=== PATIENT | female | born 1975 | race Caucasian/White ===

== ENCOUNTER 2017-01-16 06:16 | Emergency (ER) | payer MEDICAID ==
[2017-01-16 06:17] VITALS: BMI 27.1
[2017-01-16 07:18] VITALS: TEMP 98
--- NOTE | 2017-01-16 07:22 | US ---
HISTORY: Pelvic pain. LMP 01/14/2017 COMPARISON: 08/16/2012 TECHNIQUE: Transvaginal FINDINGS: UTERUS: Measures 9.3 x 6.0 x 7.2 cm. Normal in size and appearance. No fibroid or other mass lesion seen. An IUD with appears normal position the endometrial cavity. The uterine fundal endometrium is more clearly depicted on this exam than the prior. ENDOMETRIUM: Measures 11 mm in diameter. Within normal limits for patient's age. CERVIX: No cervical abnormality identified. Prior nabothian cysts are not appreciated on this exam RIGHT OVARY: Measures 2.6 x 2.1 x 2.5 cm. No solid mass. Normal flow. LEFT OVARY: Nonvisualized FREE FLUID: No significant free fluid noted. OTHER FINDINGS: None. IMPRESSION: Nonvisualized left ovary. Normal-appearing right ovary. IUD in the endometrial cavity.
[2017-01-16 07:46] LABS: BASO # 0.02 K/mm3 (0.0-2.0); BASO % 0.3 % (0.0-3.0); EOS # 0.1 (0.0-0.7); EOS % 1.2 % (1.5-5.0); GRAN # 5.11 (1.4-6.5); GRAN % 70.4 % (50.0-68.0); HEMATOCRIT 39.2 % (36.0-48.0); LYMPH # 1.6 (1.2-3.4); LYMPH % 21.6 % (22.0-35.0); MEAN CELL VOLUME 76.7 fl (80.0-105.0); MEAN CORPUSCULAR HEMOGLOBIN 25.4 pg (25.0-35.0); MEAN CORPUSCULAR HGB CONC 33.2 g/dl (31.0-37.0); MEAN PLATELET VOLUME 9.7 fl (7.0-11.0); MONO # 0.5 (0.1-0.6); MONO % 6.5 % (1.0-6.0); WHITE BLOOD COUNT 7.3 10^3/ul (4.5-11.0)
--- NOTE | 2017-01-16 07:51 | ED PDOC ---
Physical Exam Temperature: Afebrile Blood Pressure: Normal Pulse: Regular Respiratory Rate: Normal Appearance: Positive for: Well-Appearing, Non-Toxic, Comfortable Pain Distress: None Mental Status: Positive for: Alert and Oriented X 3 - Systems Exam Head: Present: Atraumatic, Normocephalic Pupils: Present: PERRL Conjunctiva: Present: Normal Mouth: Present: Moist Mucous Membranes Neck: Present: Normal Range of Motion Respiratory/Chest: Present: Clear to Auscultation, Good Air Exchange. No: Respiratory Distress, Accessory Muscle Use Cardiovascular: Present: Regular Rate and Rhythm, Normal S1, S2. No: Murmurs Abdomen: Present: Tenderness (LLQ >RLQ), Normal Bowel Sounds. No: Peritoneal Signs Genitourinary/Pelvic Exam: Present: Normal External Genitalia, Vaginal Bleeding , Cervical os Closed. No: Vaginal Discharge, Adenexal Tenderness, Adenexal Mass , Cervical Motion Tendernes, Odor Lower Extremity: Present: Normal Inspection. No: Edema Neurological: Present: GCS=15, CN II-XII Intact Skin: Present: Warm, Dry, Normal Color Psychiatric: Present: Alert, Oriented x 3 <Sita Julien - Last Filed: 01/16/17 11:21> Medical Decision Making Re-evaluation Time: 08:56 Reassessment Condition: Improved - Lab Interpretations I have reviewed the lab results: Yes Interpretation: All labs normal - RAD Interpretation Detailer: Radiologist <Sita Julien - Last Filed: 01/16/17 11:21> - Lab Interpretations I have reviewed the lab results: Yes - RAD Interpretation Detailer: Radiologist <Giovanny Dee - Last Filed: 01/17/17 13:02> ED Course and Treatment: 01/16/17 08:50 Patient was signed out to me by resident Dr. Guy. Patient was given toradol and reports feeling better. L ovary was not seen on transvaginal U/S. U/ A showed. CT abd/pelvis ordered with contrast to rule out ovarian hemorrhagic cyst v. torsion. 01/16/17 10:29 CT Abdomen and Pelvis with contrast HISTORY: lower abd pain L>R COMPARISON: None. FINDINGS: LOWER THORAX: Unremarkable. LIVER: Hepatic steatosis appear No gross lesion or ductal dilatation. GALLBLADDER AND BILE DUCTS: Unremarkable. PANCREAS: Unremarkable. No gross lesion or ductal dilatation. SPLEEN: Tiny splenule -otherwise unremarkable ADRENALS: Unremarkable. No mass. KIDNEYS AND URETERS: Unremarkable. No hydronephrosis. No solid mass. VASCULATURE: Unremarkable. No aortic aneurysm. BOWEL: No obstruction. No gross mural thickening. Redundant rectosigmoid bowel loop is contiguous with a anterior and superior positioned the left ovary with small follicular cystic changes. There may be some minimal surrounding edema here - recent follicular cystic changes are favored. No diverticular low oasis is appreciated to suggest diverticulitis. APPENDIX: Nonvisualized PERITONEUM: Unremarkable. No free fluid. No free air. LYMPH NODES: Unremarkable. No enlarged lymph nodes. BLADDER: Unremarkable. REPRODUCTIVE: The hypodensities in each adnexa/ ovary are believe most consistent with follicular cystic changes Trace fluid around the posterior right ovary is suggested. Left ovary is more anterior and superior position with follicular cystic changes - it is contiguous with a rectosigmoid redundant bowel lobe. Some trace inflammatory changes perhaps relating to physiologic ovarian cystic changes are a consideration. No identifiable diverticulosis here to suggest diverticulitis noted. An IUD appears normal position in upper intrauterine cavity. BONES: No acute fracture. Bilateral sclerotic SI joint arthrosis OTHER FINDINGS: None. IMPRESSION: The left ovary is anterior and superior in position and contiguous with the redundant rectosigmoid colon loop. Regional trace edema here noted - physiologic ovarian follicular cystic change is a consideration. No regional diverticulosis here seen to suggest diverticulitis. No bowel obstruction. No free air Right ovarian fluid of follicular cystic changes with bordering probably physiological free fluid here from follicular cystic the recent rupture is favored Ro appendix not visualized Spoke with fagot heater helper, Dr. Simeon who recommends pain control and outpatient follow up. Patient can follow up with outpatient imaging account manager Dr. Tiara Dejesus. She will be given Naproxen prescription for pain control. (Sita Julien) 01/16/17 07:00 Patient signed out to me by Dr. Durand. Pending sonogram and reevaluation on disposition. 01/16/17 07:25 Transvaginal Ultrasound: Creator : Claudette Barboza V. COMPARISON:08/16/2012 FINDINGS: UTERUS: Measures 9.3 x 6.0 x 7.2 cm. Normal in size and appearance. No fibroid or other mass lesion seen. An IUD with appears normal position the endometrial cavity. The uterine fundal endometrium is more clearly depicted on this exam than the prior. ENDOMETRIUM: Measures 11 mm in diameter. Within normal limits for patient's age. CERVIX: No cervical abnormality identified. Prior nabothian cysts are not appreciated on this exam RIGHT OVARY: Measures 2.6 x 2.1 x 2.5 cm. No solid mass. Normal flow. LEFT OVARY: Nonvisualized FREE FLUID: No significant free fluid noted. OTHER FINDINGS: None. IMPRESSION: Nonvisualized left ovary. Normal-appearing right ovary. IUD in the endometrial cavity. 01/16/17 Patient Seen With Resident: In agreement with resident note which contains more details about the patient. Patient was seen and evaluated with resident. Came up with plan and treatment together. Patient had lower abdominal tenderness with mild guarding. Her pain was controlled in the ED and her abdominal exam improved. She was able to tolerate PO fluids in the ED. OBGYN was consulted and given instructions as documented above. Patient feels much better and will make sure to follow up with her OBGYN. If her symptoms worsen or any other concern she will return to the ED. ( Giovanny Dee) - Lab Interpretations Lab Results: 01/16/17 07:43 01/16/17 07:43 Lab Results 01/16/17 08:42: Urine Color Yellow, Urine Appearance Sl cloudy, Urine pH 7.5, Ur Specific [place] 1.015, Urine Protein Trace H, Urine Glucose (UA) Negative, Urine Ketones Negative, Urine Blood Large H, Urine Nitrate Negative, Urine Bilirubin Negative, Urine Urobilinogen 0.2, Ur Leukocyte Esterase Trace H, Urine RBC 25 - 30, Urine WBC 2 - 5, Ur Epithelial Cells 10 - 12 01/16/17 07:43: Sodium 140, Potassium 4.1, Chloride 104, Carbon Dioxide 27, Anion Gap 13, BUN 16, Creatinine 0.6, Est GFR ( Amer) > 60, Est GFR (Non- Af Amer) > 60, Random Glucose 92, Calcium 9.0, Total Bilirubin 0.9, AST 21, ALT 31, Alkaline Phosphatase 74, Total Protein 7.2, Albumin 4.0, Globulin 3.2, Albumin/Globulin Ratio 1.3 01/16/17 07:43: WBC 7.3, RBC 5.11, Hgb 13.0, Hct 39.2, MCV 76.7 L, MCH 25.4, MCHC 33.2, RDW 15.0 H, Plt Count 250, MPV 9.7, Gran % 70.4 H, Lymph % (Auto) 21.6 L, Ware % (Auto) 6.5 H, Eos % (Auto) 1.2 L, Baso % (Auto) 0.3, Gran # 5.11 , Lymph # 1.6, Ware # 0.5, Eos # 0.1, Baso # 0.02 - RAD Interpretation Radiology Orders: 01/16/17 06:41 TRANSVAGINAL [US] Stat 01/16/17 08:42 ABD & PELVIS IV CONTRAST ONLY [CT] Stat - Medication Orders Current Medication Orders: Discontinued Medications Sodium Chloride (Sodium Chloride 0.9%) 1,000 mls @ 999 mls/hr IV .Q1H1M STA Stop: 01/16/17 09:43 Last Admin: 01/16/17 08:50 Dose: 999 mls/hr Iohexol (Omnipaque 300 100 Ml) Confirm Administered Dose 100 ml IJ .STK-MED ONE Stop: 01/16/17 08:49 Ketorolac Tromethamine (Toradol) 30 mg IVP STAT STA Stop: 01/16/17 08:09 Last Admin: 01/16/17 08:13 Dose: 30 mg <Sita Julien - Last Filed: 01/16/17 11:21> - PA / COTTON TIPPER / Resident Statement MD/DO has reviewed & agrees with the documentation as recorded. MD/DO has examined the patient and agrees with the treatment plan. - Scribe Statement The provider has reviewed the documentation as recorded by the Scribe <Giovanny Dee - Last Filed: 01/17/17 13:02> - Scribe Statement Rose Hoyt Provider Scribe Attestation: All medical record entries made by the Scribe were at my direction and personally dictated by me. I have reviewed the chart and agree that the record accurately reflects my personal performance of the history, physical exam, medical decision making, and the department course for this patient. I have also personally directed, reviewed, and agree with the discharge instructions and disposition. (Giovanny Dee) Disposition/Present on Arrival - Present on Arrival History of DVT/PE: No History of Uncontrolled Diabetes: No Urinary Catheter: No History of Decub. Ulcer: No History Surgical Site Infection Following: None - Disposition Have Diagnosis and Disposition been Completed?: Yes Disposition Time: 11:23 Patient Plan: Discharge <AnayaSita - Last Filed: 01/16/17 11:21> - Present on Arrival Any Indicators Present on Arrival: No History of DVT/PE: No History of Uncontrolled Diabetes: No Urinary Catheter: No History of Decub. Ulcer: No History Surgical Site Infection Following: None <Giovanny Dee - Last Filed: 01/17/17 13:02> - Disposition Diagnosis: Pelvic pain Disposition: HOME/ ROUTINE Condition: IMPROVED Discharge Instructions (ExitCare): Ovarian Cyst (ED) Print Language: NORTH KOREAN Additional Instructions: Mrs. Burns, thank you for letting us take care of you today. Your provider was Dr. Julien. You were treated for pelvic pain. The emergency medical care you received today was directed at your acute symptoms. If you were prescribed any medication, please fill it and take as directed. It may take several days for your symptoms to resolve. Return to the Emergency Department if your symptoms worsen, do not improve, or if you have any other problems. Please contact your doctor, Dr. Dejesus (imaging account manager) or call one of the physicians/clinics you have been referred to that are listed on the Patient Visit Information form that is included in your discharge packet. Bring any paperwork you were given at discharge with you along with any medications you are taking to your follow up visit. Our treatment cannot replace ongoing medical care by a primary care provider (PCP) outside of the emergency department. Thank you for allowing the [facility] team to be part of your care today. Prescriptions: Naproxen [Naprosyn] 500 mg PO Q12 PRN #10 tablet PRN Reason: Pain, Moderate (4-7) Referrals: Jaya Edwards MD [Primary Care Provider] - Follow up with primary Forms: [employer] (Frisian), WORK NOTE
--- NOTE | 2017-01-16 07:53 | ED PDOC ---
Arrival/HPI - General Chief Complaint: Abdominal Pain Time Seen by Provider: 01/16/17 06:31 Historian: Patient - History of Present Illness Narrative History of Present Illness (Text): 01/16/17 06:50 41 F presents with 2 day duration of pelvic pain. Patient states that she started her period 2 days ago, but only had 'a few drops of blood.' She states that she then started having intense, sharp, 10/10 pain diffusely throughout her pelvis that does not radiate. Patient denies any other symptoms, including n/v/d/sob/cp/fatigue/f/ch. Patient states that this has happened once before in the past, and that she just endured the pain, but this time it is much worse. Pt states that she has an IUD placed but that she still has monthly periods. No further complaints. Past Medical History - Provider Review Nursing Documentation Reviewed: Yes - Infectious Disease Hx of Infectious Diseases: None - Tetanus Immunization Tetanus Immunization: Unknown - Past Medical History Past Medical History: No Previous - Cardiac Hx Cardiac Disorders: No - Pulmonary Hx Respiratory Disorders: No - Neurological Hx Neurological Disorder: No - HEENT Hx HEENT Disorder: No - Renal Hx Renal Disorder: No - Endocrine/Metabolic Hx Endocrine Disorders: No - Hematological/Oncological Hx Blood Disorders: No - Integumentary Hx Dermatological Disorder: Yes (Cyst Right Shoulder) - Musculoskeletal/Rheumatological Hx Fractures: Yes (left arm 1989) - Gastrointestinal Hx Gastrointestinal Disorders: No - Genitourinary/Gynecological Other/Comment: Cyst right breast - Psychiatric Hx Substance Use: No - Past Surgical History Past Surgical History: No Previous - Surgical History Hx Appendectomy: Yes Hx Tonsillectomy: Yes - Anesthesia Hx Anesthesia: Yes Hx Anesthesia Reactions: No Hx Malignant Hyperthermia: No - Suicidal Assessment Feels Threatened In Home Enviroment: No Family/Social History - Physician Review Nursing Documentation Reviewed: Yes Family/Social History: No Known Family HX Smoking Status: Never Smoked Hx Alcohol Use: No Hx Substance Use: No Hx Substance Use Treatment: No Allergies/Home Meds Allergies/Adverse Reactions: Allergies No Known Allergies Allergy (Verified 12/10/14 17:28) Home Medications: Home Meds Medication Instructions Recorded Confirmed No Known Home Med 01/16/17 01/16/17 Review of Systems - Physician Review All systems were reviewed & negative as marked: Yes - Review of Systems Constitutional: Normal. absent: Fatigue, Weight Change, Fevers, Night Sweats, Other Eyes: Normal. absent: Vision Changes, Photophobia, Eye Pain, Other ENT: Normal. absent: Hearing Changes, Tinnitus, TMJ Pain, Voice Changes, Sore Throat, Rhinorrhea, Epistaxis, Sinus Congestion, Other Respiratory: Normal Cardiovascular: Normal. absent: Chest Pain, Palpitations, Edema, Calf Pain, ADAMSON , Orthopnea, SY, Syncope, Other Gastrointestinal: Normal. absent: Abdominal Pain, Stool Changes, Constipation, Diarrhea, Nausea, Vomiting, Appetite Changes, Hematochezia, Hematemesis, Anorexia, Food Intolerance, Other Genitourinary Female: absent: Normal (See hpi) Musculoskeletal: Normal. absent: Arthralgias, Back Pain, Neck Pain, Joint Swelling, Myalgias, Other Skin: Normal. absent: Rash, Pruritis, Skin Lesions, Laceration, Abscess, Ulcer , Cellulitis, Other Neurological: Normal. absent: Headache, Dizziness, Focal Weakness, Gait Changes , Speech Changes, SC, Facial Droop, DE, Disequilibrium, SE, Seizure, Other Endocrine: Normal. absent: Diaphoresis, Polyuria, Polydipsia, Other Hemo/Lymphatic: Normal. absent: Adenopathy, Easy Bleeding, Easy Bruising, Other Psychiatric: Normal. absent: Anxiety, Depression, Suicidal Ideation, Other Physical Exam Vital Signs Reviewed: Yes Vital Signs Temp Pulse Resp BP Pulse Ox 01/16/17 07:17 98.0 F 76 17 109/65 98 01/16/17 06:28 98 F 76 19 109/65 99 Temperature: Afebrile Blood Pressure: Normal Pulse: Regular Respiratory Rate: Normal Appearance: Positive for: Well-Appearing, Non-Toxic, Comfortable Pain Distress: None Mental Status: Positive for: Alert and Oriented X 3 - Systems Exam Head: Present: Atraumatic, Normocephalic. No: Tenderness, Contusion, Laceration Pupils: Present: PERRL. No: Sluggish, Non-Reactive Extroacular Muscles: Present: EOMI. No: Gaze Palsy, Entrapment Conjunctiva: Present: Normal. No: Injected, Icteric Ears: Present: Normal, NORMAL TM. No: Erythema, Normal Canal Mouth: Present: Moist Mucous Membranes. No: Dry, Drooling Pharnyx: Present: Normal. No: ERYTHEMA, EXUDATE Nose (External): Present: Atraumatic. No: Abrasion, Contusion Nose (Internal): Present: Normal Inspection, No Active Bleeding. No: Clear Mucous, Rhinorrhea Neck: Present: Normal Range of Motion. No: Meningeal Signs, MIDLINE TENDERNESS Respiratory/Chest: Present: Clear to Auscultation, Good Air Exchange. No: Respiratory Distress, Accessory Muscle Use Cardiovascular: Present: Regular Rate and Rhythm, Normal S1, S2. No: Murmurs Abdomen: Present: Normal Bowel Sounds. No: Tenderness, Distention, Peritoneal Signs Back: Present: Normal Inspection Upper Extremity: Present: Normal Inspection. No: Cyanosis, Edema Lower Extremity: Present: Normal Inspection, NORMAL PULSES. No: Edema, CALF TENDERNESS Neurological: Present: GCS=15, CN II-XII Intact, Speech Normal, Motor Func Grossly Intact, Normal Sensory Function, Normal Cerebellar Funct Skin: Present: Warm, Dry, Normal Color. No: Rashes, Diaphoretic, Erythematous Psychiatric: Present: Alert, Oriented x 3, Normal Insight, Normal Concentration. No: Depressed Mood, Suicidal Ideation, Homicidal Ideation Medical Decision Making ED Course and Treatment: Assessed: 01/16/17 06:56 Impression: 41 F with diffuse pelvic pain coinciding with her menstrual cycle. Patient has an IUD. Plan: - test - TVUS - If these are both negative, give patient Toradol - RAD Interpretation Radiology Orders: 01/16/17 06:41 TRANSVAGINAL [US] Stat Disposition/Present on Arrival - Present on Arrival History of DVT/PE: No History of Uncontrolled Diabetes: No Urinary Catheter: No History of Decub. Ulcer: No History Surgical Site Infection Following: None - Disposition Referrals: Jaya Edwards MD [Primary Care Provider] - Follow up with primary Forms: [employer] (Armenian)
[2017-01-16 08:06] LABS: ALB/GLOB RATIO 1.3 (1.1-1.8); ALKALINE PHOSPHATASE 74 U/L (38-126); ALT/SGPT 31 U/L (7-56); AST/SGOT 21 U/L (14-36); BILIRUBIN,TOTAL 0.9 mg/dL (0.2-1.3); BLOOD UREA NITROGEN 16 mg/dL (7-21); CARBON DIOXIDE 27 mmol/L (21-33); CHLORIDE 104 mmol/L (98-107); GFR AFRICAN-AMERICAN > 60; GLUCOSE,RANDOM 92 mg/dL (70-110); POTASSIUM 4.1 mmol/L (3.6-5.0); SODIUM 140 mmol/L (132-148); TOTAL PROTEIN 7.2 g/dL (5.8-8.3)
[2017-01-16] MEDS ORDERED: Sodium Chloride 0.9% 1,000 ML IV STA (08:43)
[2017-01-16] MEDS ORDERED: Iohexol 300 100 ML IJ ONE (08:48)
[2017-01-16 08:54] LABS: PH,URINE 7.5 (4.7-8.0); URINE BILIRUBIN NEGATIVE (NEGATIVE); URINE BLOOD LARGE (NEGATIVE); URINE GLUCOSE (UA) NEGATIVE (NEGATIVE); URINE KETONE NEGATIVE (NEGATIVE); URINE LEUKOCYTE ESTERASE TRACE Leu/uL (NEGATIVE); URINE PROTEIN TRACE mg/dL (<30 mg/dL); URINE UROBILINOGEN 0.2 E.U./dL (<1 E.U./dL)
[2017-01-16 08:55] LABS: URINE APPEARANCE SL CLOUDY (CLEAR); URINE COLOR YELLOW (YELLOW)
[2017-01-16 08:57] LABS: URINE RBC 25 - 30 /hpf (0-2)
--- NOTE | 2017-01-16 10:21 | CT ---
PROCEDURE: CT Abdomen and Pelvis with contrast HISTORY: lower abd pain L>R COMPARISON: None. TECHNIQUE: Contrast dose: 100 mL Omnipaque 300 Radiation dose: Total exam DLP = 513 mGy-cm. This CT exam was performed using one or more of the following dose reduction techniques: Automated exposure control, adjustment of the mA and/or kV according to patient size, and/or use of iterative reconstruction technique. FINDINGS: LOWER THORAX: Unremarkable. LIVER: Hepatic steatosis appear No gross lesion or ductal dilatation. GALLBLADDER AND BILE DUCTS: Unremarkable. PANCREAS: Unremarkable. No gross lesion or ductal dilatation. SPLEEN: Tiny splenule -otherwise unremarkable ADRENALS: Unremarkable. No mass. KIDNEYS AND URETERS: Unremarkable. No hydronephrosis. No solid mass. VASCULATURE: Unremarkable. No aortic aneurysm. BOWEL: No obstruction. No gross mural thickening. Redundant rectosigmoid bowel loop is contiguous with a anterior and superior positioned the left ovary with small follicular cystic changes. There may be some minimal surrounding edema here - recent follicular cystic changes are favored. No diverticular low oasis is appreciated to suggest diverticulitis. APPENDIX: Nonvisualized PERITONEUM: Unremarkable. No free fluid. No free air. LYMPH NODES: Unremarkable. No enlarged lymph nodes. BLADDER: Unremarkable. REPRODUCTIVE: The hypodensities in each adnexa/ ovary are believe most consistent with follicular cystic changes Trace fluid around the posterior right ovary is suggested. Left ovary is more anterior and superior position with follicular cystic changes - it is contiguous with a rectosigmoid redundant bowel lobe. Some trace inflammatory changes perhaps relating to physiologic ovarian cystic changes are a consideration. No identifiable diverticulosis here to suggest diverticulitis noted. An IUD appears normal position in upper intrauterine cavity. BONES: No acute fracture. Bilateral sclerotic SI joint arthrosis OTHER FINDINGS: None. IMPRESSION: The left ovary is anterior and superior in position and contiguous with the redundant rectosigmoid colon loop. Regional trace edema here noted - physiologic ovarian follicular cystic change is a consideration. No regional diverticulosis here seen to suggest diverticulitis. No bowel obstruction. No free air Right ovarian fluid of follicular cystic changes with bordering probably physiological free fluid here from follicular cystic the recent rupture is favored Ro appendix not visualized
[2017-01-16 11:43] VITALS: BP 110/60; PULSE 80; RESP 18; O2SAT 100
== END 2017-01-16 11:43 | disposition home or self-care (01) ==
LOC: ED 06:16
DX: R10.2 Pelvic and perineal pain (principal)
CPT/HCPCS: 74177; 76830; 80053; 81001; 85025; 87086; 87491; 87591; 96361; 96374; 99284; J1885; J7040; Q9967

== ENCOUNTER 2017-12-20 05:26 | Emergency (ER) | payer MEDICAID ==
[2017-12-20 05:27] VITALS: BMI 27.1
--- NOTE | 2017-12-20 05:59 | ED PDOC ---
Arrival/HPI - General Chief Complaint: Back Pain Time Seen by Provider: 12/20/17 05:53 Historian: Patient - History of Present Illness Narrative History of Present Illness (Text): 12/20/17 05:56 41 year old female, with no significant past medical history, presents to the emergency department complaining of lower back pain s/p fall. Patient was in the living room when she attempted to get up and go to the bathroom and apparently fell. Patient Patient denies any loss of consciousness, head injuries , fever, chills, chest pain, shortness of breath, abdominal pain, nausea, vomiting, diarrhea, urinary symptoms, neck pain, headache, dizziness, or any other complaints. Symptom Onset: Sudden Symptom Course: Unchanged Severity Level: Severe Activities at Onset: Rest Context: Walking, Home Past Medical History - Provider Review Nursing Documentation Reviewed: Yes - Travel History Have you recently traveled outside [place] w/in the past 3 mons?: No - Infectious Disease Hx of Infectious Diseases: None - Tetanus Immunization Tetanus Immunization: Unknown - Past Medical History Past Medical History: No Previous - Cardiac Hx Cardiac Disorders: No - Pulmonary Hx Respiratory Disorders: No - Neurological Hx Neurological Disorder: No - HEENT Hx HEENT Disorder: No - Renal Hx Renal Disorder: No - Endocrine/Metabolic Hx Endocrine Disorders: No - Hematological/Oncological Hx Blood Disorders: No - Integumentary Hx Dermatological Disorder: Yes (Cyst Right Shoulder) - Musculoskeletal/Rheumatological Hx Fractures: Yes (left arm 1989) - Gastrointestinal Hx Gastrointestinal Disorders: No - Genitourinary/Gynecological Other/Comment: Cyst right breast - Psychiatric Hx Substance Use: No - Past Surgical History Past Surgical History: No Previous - Surgical History Hx Appendectomy: Yes Hx Tonsillectomy: Yes - Anesthesia Hx Anesthesia: Yes Hx Anesthesia Reactions: No Hx Malignant Hyperthermia: No - Suicidal Assessment Feels Threatened In Home Enviroment: No Family/Social History - Physician Review Nursing Documentation Reviewed: Yes Family/Social History: No Known Family HX Smoking Status: Never Smoked Hx Alcohol Use: No Hx Substance Use: No Hx Substance Use Treatment: No Allergies/Home Meds Allergies/Adverse Reactions: Allergies No Known Allergies Allergy (Verified 12/20/17 11:29) Review of Systems - Physician Review All systems were reviewed & negative as marked: Yes - Review of Systems Constitutional: absent: Fevers, Other (Chills) Respiratory: absent: SOB Cardiovascular: absent: Chest Pain Gastrointestinal: absent: Abdominal Pain, Diarrhea, Nausea, Vomiting Genitourinary Female: absent: Dysuria, Frequency, Hematuria Musculoskeletal: Back Pain. absent: Neck Pain Neurological: absent: Headache, Dizziness Physical Exam Vital Signs Reviewed: Yes Vital Signs Temp Pulse Resp BP Pulse Ox 12/20/17 11:29 98.0 F 67 19 99 12/20/17 11:07 98.2 F 68 17 100/60 97 12/20/17 08:04 98.0 F 63 18 93/63 L 98 Temperature: Afebrile Blood Pressure: Normal Pulse: Regular Respiratory Rate: Normal Appearance: Positive for: Well-Appearing, Non-Toxic, Comfortable Pain Distress: None Mental Status: Positive for: Alert and Oriented X 3 - Systems Exam Head: Present: Atraumatic, Normocephalic Pupils: Present: PERRL Extroacular Muscles: Present: EOMI Conjunctiva: Present: Normal Mouth: Present: Moist Mucous Membranes Neck: Present: Normal Range of Motion Respiratory/Chest: Present: Clear to Auscultation, Good Air Exchange. No: Respiratory Distress, Accessory Muscle Use Cardiovascular: Present: Regular Rate and Rhythm, Normal S1, S2. No: Murmurs Abdomen: No: Tenderness, Distention, Peritoneal Signs Back: Present: Paraspinal Tenderness (Paraspinal Lumbar tenderness). No: Midline Tenderness Upper Extremity: Present: Normal Inspection. No: Cyanosis, Edema Lower Extremity: Present: Normal Inspection. No: Edema Neurological: Present: GCS=15, CN II-XII Intact, Speech Normal Skin: Present: Warm, Dry, Normal Color. No: Rashes Psychiatric: Present: Alert, Oriented x 3, Normal Insight, Normal Concentration Medical Decision Making ED Course and Treatment: 12/20/17 05:58 Impression: 41 year old female presents complaining of lower back pain s/p fall when attempting to get up and go to the bathroom. Plan: -- Toradol --Lidoderm --Percocet --CT lumbar spine w/o contrast -- reassess and disposition Progress Notes: 12/20/17 0600 Patient reassessed and still compaining of persistent back pain despite analgesics. Will order imaging study. Upon remote observation, patient noted to be histrionic and writhing in bed. 12/20/17 [address] Batres who will resume the patient's care. - Lab Interpretations Microbiology Results: Microbiology Results 12/20/17 Unknown Urine,Clean Catch Urine Culture - Final No Growth (<1,000 CFU/ML) Lab Results: 12/20/17 07:42 12/20/17 07:42 Lab Results 12/20/17 08:00: Urine Color Light yellow, Urine Appearance Clear, Urine pH 7.0, Ur Specific [place] <= 1.005, Urine Protein Negative, Urine Glucose (UA) Negative, Urine Ketones Negative, Urine Blood Trace-lysed H, Urine Nitrate Negative, Urine Bilirubin Negative, Urine Urobilinogen 0.2, Ur Leukocyte Esterase Small H, Urine RBC 1 - 3, Urine WBC 5 - 10, Ur Epithelial Cells 4 - 5, Urine Bacteria Mod, Urine HCG, Qual Negative 12/20/17 07:42: Sodium 141, Potassium 4.2, Chloride 105, Carbon Dioxide 27, Anion Gap 13, BUN 12, Creatinine 0.6 L, Est GFR ( Amer) > 60, Est GFR ( Non-Af Amer) > 60, Random Glucose 101, Calcium 9.2, Magnesium 2.2, Total Bilirubin 0.6, AST 26, ALT 31, Alkaline Phosphatase 71, Lactate Dehydrogenase 403, Total Creatine Kinase 78, Troponin I < 0.01, Total Protein 7.5, Albumin 4.3 , Globulin 3.3, Albumin/Globulin Ratio 1.3 12/20/17 07:42: PT 11.5, INR 1.00, APTT 30.2 12/20/17 07:42: WBC 4.5 D, RBC 5.20, Hgb 13.2, Hct 39.8, MCV 76.5 L, MCH 25.4, MCHC 33.2, RDW 15.2 H, Plt Count 255, MPV 10.4, Gran % 45.0 L, Lymph % (Auto) 48.3 H, [place] % (Auto) 5.6, Eos % (Auto) 0.9 L, Baso % (Auto) 0.2, Gran # 2.01, Lymph # (Auto) 2.2, [place] # (Auto) 0.3, Eos # (Auto) 0.0, Baso # (Auto) 0.01 - RAD Interpretation Radiology Orders: 12/20/17 07:17 LUMBAR SPINE W/O CONTRAST [CT] Stat 12/20/17 07:31 HEAD W/O CONTRAST [CT] Stat CHEST PORTABLE [RAD] Stat - Medication Orders Current Medication Orders: Discontinued Medications Sodium Chloride (Sodium Chloride 0.9%) 1,000 mls @ 999 mls/hr IV .Q1H1M STA Stop: 12/20/17 09:19 Last Admin: 12/20/17 09:38 Dose: 999 mls/hr eMAR Start Stop Document 12/20/17 09:38 [email or web address] (Rec: 12/20/17 09:38 [email or web address] [id number]) Intravenous Solution Start Date 12/20/17 Start Time 09:38 Ketorolac Tromethamine (Toradol) 60 mg IM STAT STA Stop: 12/20/17 05:56 Last Admin: 12/20/17 06:27 Dose: 60 mg MAR Pain Assessment Document 12/20/17 06:27 JOL (Rec: 12/20/17 06:28 [id number] Pain Reassessment Is this a pain reassessment? No Sleep Is patient sleeping during reassessment? No Presence of Pain Presence of Pain Yes Pain Scale Used Pain Scale Used Numeric Location Left, Right or Bilateral Right Upper or Lower Lower Pain Location Body Site Back Description Intensity of Pain at present 7 Acceptable Level of Pain 2 Pain Behavior Moaning Withdrawal from Touch Restlessness Refusal to Eat Aggravating Factors ADL's IM Administration Charges Document 12/20/17 06:27 JOL (Rec: 12/20/17 06:28 [facility] [id number]) Injection Site MAR Injection Site Left Deltoid Charges for Administration # of IM Administrations 1 Lidocaine (Lidoderm) 1 ea TD ONCE ONE Stop: 12/20/17 06:03 Last Admin: 12/20/17 06:27 Dose: 1 ea MAR Transdermal Patch Site Document 12/20/17 06:27 JOL (Rec: 12/20/17 06:27 [facility]OL [facility] [id number]) Transdermal Patch Site Transdermal Patch Site Right Lower Back Oxycodone/Acetaminophen (Percocet 5/325 Mg Tab) 1 tab PO STAT STA Stop: 12/20/17 07:19 Last Admin: 12/20/17 08:08 Dose: 1 tab MAR Pain Assessment Document 12/20/17 08:08 [email or web address] (Rec: 12/20/17 08:09 [email or web address] [id number]) Pain Reassessment Is this a pain reassessment? No Sleep Is patient sleeping during reassessment? No Presence of Pain Presence of Pain Yes Pain Scale Used Pain Scale Used Numeric Location Pain Location Body Site Back Description Description Constant Intensity of Pain at present 7 Pain Behavior Facial Grimacing Aggravating Factors Changing Position Alleviating Factors/Management Position Change Techniques Alleviating Factors Medication - Scribe Statement The provider has reviewed the documentation as recorded by the Estevan Coronel Provider Scribe Attestation: All medical record entries made by the Estevan were at my direction and personally dictated by me. I have reviewed the chart and agree that the record accurately reflects my personal performance of the history, physical exam, medical decision making, and the department course for this patient. I have also personally directed, reviewed, and agree with the discharge instructions and disposition. Disposition/Present on Arrival - Present on Arrival Any Indicators Present on Arrival: No History of DVT/PE: No History of Uncontrolled Diabetes: No Urinary Catheter: No History of Decub. Ulcer: No History Surgical Site Infection Following: None - Disposition Have Diagnosis and Disposition been Completed?: Yes Diagnosis: Syncope, Back pain Disposition: AGAINST MEDICAL ADVICE Disposition Time: 07:00 Condition: STABLE
[2017-12-20] MEDS ORDERED: Lidocaine 5% Patch TD ONE (06:02)
[2017-12-20] MEDS ORDERED: Oxycodone/Acetaminophen 5/325 mg Tab PO STA (07:18)
[2017-12-20 08:07] LABS: ALB/GLOB RATIO 1.3 (1.1-1.8); ALBUMIN 4.3 g/dL (3.0-4.8); ALT/SGPT 31 U/L (7-56); AST/SGOT 26 U/L (14-36); BLOOD UREA NITROGEN 12 mg/dL (7-21); CALCIUM 9.2 mg/dL (8.4-10.5); GFR AFRICAN-AMERICAN > 60; GFR NON-AFRICAN AMERICAN > 60
[2017-12-20 08:10] LABS: PARTIAL THROMBOPLASTIN TIME 30.2 Seconds (25.1-36.5); PROTHROMBIN TIME 11.5 SECONDS (9.4-12.5)
[2017-12-20 08:12] LABS: BASO # 0.01 K/mm3 (0.0-2.0); BASO % 0.2 % (0.0-3.0); EOS % 0.9 % (1.5-5.0); GRAN # 2.01 (1.4-6.5); HEMOGLOBIN 13.2 g/dL (12.0-16.0); LYMPH # 2.2 (1.2-3.4); LYMPH % 48.3 % (22.0-35.0); MEAN CELL VOLUME 76.5 fl (80.0-105.0); MEAN CORPUSCULAR HEMOGLOBIN 25.4 pg (25.0-35.0); MEAN CORPUSCULAR HGB CONC 33.2 g/dl (31.0-37.0); MEAN PLATELET VOLUME 10.4 fl (7.0-11.0); MONO # 0.3 (0.1-0.6); MONO % 5.6 % (1.0-6.0); RBC 5.2 10^6/uL (3.5-6.1); RED CELL DISTRIBUTION WIDTH 15.2 % (11.5-14.5); WHITE BLOOD COUNT 4.5 10^3/ul (4.5-11.0)
[2017-12-20 08:17] LABS: HCG,QUALITATIVE URINE NEGATIVE (NEGATIVE)
[2017-12-20 08:19] LABS: TROPONIN I < 0.01 ng/mL
[2017-12-20] MEDS ORDERED: Sodium Chloride 0.9% 1,000 ML IV STA (08:19)
[2017-12-20 08:20] LABS: URINE APPEARANCE CLEAR (CLEAR); URINE BILIRUBIN NEGATIVE (NEGATIVE); URINE BLOOD TRACE-LYSED (NEGATIVE); URINE GLUCOSE (UA) NEGATIVE (NEGATIVE); URINE LEUKOCYTE ESTERASE SMALL Leu/uL (NEGATIVE); URINE PROTEIN NEGATIVE mg/dL (<30 mg/dL); URINE UROBILINOGEN 0.2 E.U./dL (<1 E.U./dL)
[2017-12-20 08:21] LABS: URINE COLOR LIGHT YELLOW (YELLOW)
[2017-12-20 08:23] LABS: URINE BACTERIA MOD (NEG)
--- NOTE | 2017-12-20 08:34 | ED PDOC ---
Physical Exam Vital Signs Reviewed: Yes Vital Signs Temp Pulse Resp BP Pulse Ox 12/20/17 11:07 98.2 F 68 17 100/60 97 12/20/17 08:04 98.0 F 63 18 93/63 L 98 Temperature: Afebrile Blood Pressure: Normal Pulse: Regular Respiratory Rate: Normal Appearance: Positive for: Well-Appearing, Non-Toxic, Comfortable Pain Distress: None Mental Status: Positive for: Alert and Oriented X 3 - Systems Exam Head: Present: Atraumatic, Normocephalic Pupils: Present: PERRL Extroacular Muscles: Present: EOMI Conjunctiva: Present: Normal Mouth: Present: Moist Mucous Membranes Neck: Present: Normal Range of Motion Respiratory/Chest: Present: Clear to Auscultation, Good Air Exchange. No: Respiratory Distress, Accessory Muscle Use Cardiovascular: Present: Regular Rate and Rhythm, Normal S1, S2. No: Murmurs Abdomen: No: Tenderness, Distention, Peritoneal Signs Back: Present: Normal Inspection Upper Extremity: Present: Normal Inspection. No: Cyanosis, Edema Lower Extremity: Present: Normal Inspection. No: Edema Neurological: Present: GCS=15, CN II-XII Intact, Speech Normal Skin: Present: Warm, Dry, Normal Color. No: Rashes Psychiatric: Present: Alert, Oriented x 3, Normal Insight, Normal Concentration Medical Decision Making ED Course and Treatment: 12/20/17 08:33 Impression: Patient was endorsed to me pending CT results. Patient now states she had a syncopal episode last night. Plan: -- Reassess and disposition Prior Visits: Notes and results from previous visits were reviewed. Progress Notes: 12/20/17 08:35 EKG reviewed, shows: Normal sinus rhythm @ 70bpm No ST and T wave changes 12/20/17 08:[address] reviewed by radiologist, shows: No active disease 12/20/17 11:[address] reviewed by radiologist, shows: No acute findings Chest X-ray reviewed by radiologist, shows: No active pulmonary disease 12/20/17 15:50 accepted hospitalist for obs. - Lab Interpretations Lab Results: 12/20/17 07:42 12/20/17 07:42 Lab Results 12/20/17 08:00: Urine Color Light yellow, Urine Appearance Clear, Urine pH 7.0, Ur Specific [place] <= 1.005, Urine Protein Negative, Urine Glucose (UA) Negative, Urine Ketones Negative, Urine Blood Trace-lysed H, Urine Nitrate Negative, Urine Bilirubin Negative, Urine Urobilinogen 0.2, Ur Leukocyte Esterase Small H, Urine RBC 1 - 3, Urine WBC 5 - 10, Ur Epithelial Cells 4 - 5, Urine Bacteria Mod, Urine HCG, Qual Negative 12/20/17 07:42: Sodium 141, Potassium 4.2, Chloride 105, Carbon Dioxide 27, Anion Gap 13, BUN 12, Creatinine 0.6 L, Est GFR ( Amer) > 60, Est GFR ( Non-Af Amer) > 60, Random Glucose 101, Calcium 9.2, Magnesium 2.2, Total Bilirubin 0.6, AST 26, ALT 31, Alkaline Phosphatase 71, Lactate Dehydrogenase 403, Total Creatine Kinase 78, Troponin I < 0.01, Total Protein 7.5, Albumin 4.3 , Globulin 3.3, Albumin/Globulin Ratio 1.3 12/20/17 07:42: PT 11.5, INR 1.00, APTT 30.2 12/20/17 07:42: WBC 4.5 D, RBC 5.20, Hgb 13.2, Hct 39.8, MCV 76.5 L, MCH 25.4, MCHC 33.2, RDW 15.2 H, Plt Count 255, MPV 10.4, Gran % 45.0 L, Lymph % (Auto) 48.3 H, [place] % (Auto) 5.6, Eos % (Auto) 0.9 L, Baso % (Auto) 0.2, Gran # 2.01, Lymph # (Auto) 2.2, [place] # (Auto) 0.3, Eos # (Auto) 0.0, Baso # (Auto) 0.01 - RAD Interpretation Radiology Orders: 12/20/17 07:17 LUMBAR SPINE W/O CONTRAST [CT] Stat 12/20/17 07:31 HEAD W/O CONTRAST [CT] Stat CHEST PORTABLE [RAD] Stat - Medication Orders Current Medication Orders: Discontinued Medications Sodium Chloride (Sodium Chloride 0.9%) 1,000 mls @ 999 mls/hr IV .Q1H1M STA Stop: 12/20/17 09:19 Last Admin: 12/20/17 09:38 Dose: 999 mls/hr eMAR Start Stop Document 12/20/17 09:38 [email or web address] (Rec: 12/20/17 09:38 [email or web address] [id number]) Intravenous Solution Start Date 12/20/17 Start Time 09:38 Ketorolac Tromethamine (Toradol) 60 mg IM STAT STA Stop: 12/20/17 05:56 Last Admin: 12/20/17 06:27 Dose: 60 mg MAR Pain Assessment Document 12/20/17 06:27 JOL (Rec: 12/20/17 06:28 [id number] Pain Reassessment Is this a pain reassessment? No Sleep Is patient sleeping during reassessment? No Presence of Pain Presence of Pain Yes Pain Scale Used Pain Scale Used Numeric Location Left, Right or Bilateral Right Upper or Lower Lower Pain Location Body Site Back Description Intensity of Pain at present 7 Acceptable Level of Pain 2 Pain Behavior Moaning Withdrawal from Touch Restlessness Refusal to Eat Aggravating Factors ADL's IM Administration Charges Document 12/20/17 06:27 JOL (Rec: 12/20/17 06:28 [id number]) Injection Site MAR Injection Site Left Deltoid Charges for Administration # of IM Administrations 1 Lidocaine (Lidoderm) 1 ea TD ONCE ONE Stop: 12/20/17 06:03 Last Admin: 12/20/17 06:27 Dose: 1 ea MAR Transdermal Patch Site Document 12/20/17 06:27 JOL (Rec: 12/20/17 06:27 [id number]) Transdermal Patch Site Transdermal Patch Site Right Lower Back Oxycodone/Acetaminophen (Percocet 5/325 Mg Tab) 1 tab PO STAT STA Stop: 12/20/17 07:19 Last Admin: 12/20/17 08:08 Dose: 1 tab MAR Pain Assessment Document 12/20/17 08:08 [email or web address] (Rec: 12/20/17 08:09 [email or web address] [id number]) Pain Reassessment Is this a pain reassessment? No Sleep Is patient sleeping during reassessment? No Presence of Pain Presence of Pain Yes Pain Scale Used Pain Scale Used Numeric Location Pain Location Body Site Back Description Description Constant Intensity of Pain at present 7 Pain Behavior Facial Grimacing Aggravating Factors Changing Position Alleviating Factors/Management Position Change Techniques Alleviating Factors Medication - Scribe Statement The provider has reviewed the documentation as recorded by the Scribe Sarath Blanco All medical record entries made by the Estevan were at my direction and personally dictated by me. I have reviewed the chart and agree that the record accurately reflects my personal performance of the history, physical exam, medical decision making, and the department course for this patient. I have also personally directed, reviewed, and agree with the discharge instructions and disposition. Disposition/Present on Arrival - Present on Arrival Any Indicators Present on Arrival: No History of DVT/PE: No History of Uncontrolled Diabetes: No Urinary Catheter: No History of Decub. Ulcer: No History Surgical Site Infection Following: None - Disposition Have Diagnosis and Disposition been Completed?: Yes Diagnosis: Syncope, Back pain Disposition: AGAINST MEDICAL ADVICE Disposition Time: 11:00 Condition: STABLE
--- NOTE | 2017-12-20 08:47 | CT ---
Date of service: 12/20/2017 PROCEDURE: CT HEAD WITHOUT CONTRAST. HISTORY: syncope COMPARISON: None available. TECHNIQUE: Axial computed tomography images were obtained through the head/brain without intravenous contrast. Radiation dose: Total exam DLP = 902 mGy-cm. This CT exam was performed using one or more of the following dose reduction techniques: Automated exposure control, adjustment of the mA and/or kV according to patient size, and/or use of iterative reconstruction technique. FINDINGS: HEMORRHAGE: No intracranial hemorrhage. BRAIN: No mass effect or edema. No atrophy or chronic microvascular ischemic changes. VENTRICLES: Unremarkable. No hydrocephalus. CALVARIUM: Unremarkable. PARANASAL SINUSES: Unremarkable as visualized. No significant inflammatory changes. MASTOID AIR CELLS: Unremarkable as visualized. No inflammatory changes. OTHER FINDINGS: None. IMPRESSION: No acute findings
--- NOTE | 2017-12-20 09:21 | CT ---
Date of service: 12/20/2017 PROCEDURE: CT Lumbar Spine without contrast HISTORY: fall COMPARISON: None available. TECHNIQUE: Axial computed tomography images were obtained of the lumbar spine without the use of intravenous contrast. Coronal and sagittal reformatted images were created and reviewed. Radiation dose: Total exam DLP = 464 mGy-cm. This CT exam was performed using one or more of the following dose reduction techniques: Automated exposure control, adjustment of the mA and/or kV according to patient size, and/or use of iterative reconstruction technique. FINDINGS: VERTEBRAE: Unremarkable. No fracture. Normal alignment. DISCS/SPINAL CANAL/NEURAL FORAMINA: L1-2: Unremarkable. L2-3: Unremarkable. L3-4: Unremarkable. L4-5: Unremarkable. L5-S1: Unremarkable. PARASPINAL SOFT TISSUES: Unremarkable. OTHER FINDINGS: None. IMPRESSION: Unremarkable CT of Lumbar Spine.
--- NOTE | 2017-12-20 10:21 | RAD ---
Date of service: 12/20/2017 HISTORY: syncope COMPARISON: No prior. FINDINGS: LUNGS: The lungs are well inflated and clear. PLEURA: No significant pleural effusion identified, no pneumothorax apparent. CARDIOVASCULAR: Normal. OSSEOUS STRUCTURES: No significant abnormalities. VISUALIZED UPPER ABDOMEN: Normal. OTHER FINDINGS: None. IMPRESSION: No active pulmonary disease.
[2017-12-20 11:08] VITALS: BP 100/60
[2017-12-20 11:30] VITALS: PULSE 67; RESP 19; TEMP 98; O2SAT 99
--- NOTE | 2017-12-20 11:45 | CP.PCM.PN ---
<Emmy Giron - Last Filed: 12/20/17 11:58> Subjective - Date & Time of Evaluation Date of Evaluation: 12/20/17 Time of Evaluation: 11:15 - Subjective Subjective: Patient was refusing to be seen and examined and did not want to be admitted for further testing/management as she reported feeling better and was able to ambulate. Patient was counseled on importance of optimization of condition and care and was counseled on the major risks of leaving which included but were not limited to deconditioning, worsening of pain, falls, worsening of known/unknown conditions. Patient refused further imaging, tests, physical examination, and any other inpatient treatment. Patient was counseled to return to the Emergency Department if symptoms worsened. Instructions discussed in detail with patient who understood and agreed. Patient signed AMA paperwork which was witnessed and signed by the RN Rhoda Rojas. Attending Dr. Beni Giron PGY3 Objective - Vital Signs/Intake and Output Vital Signs (last 24 hours): Temp Pulse Resp BP Pulse Ox 98.0 F 67 19 100/60 99 12/20/17 11:29 12/20/17 11:29 12/20/17 11:29 12/20/17 11:07 12/20/17 11:29 - Labs Labs: PT 11.5 SECONDS (9.4-12.5) 12/20/17 07:42 INR 1.00 12/20/17 07:42 APTT 30.2 Seconds (25.1-36.5) 12/20/17 07:42 <Nicole Bazan - Last Filed: 12/22/17 13:35> Objective - Vital Signs/Intake and Output Vital Signs (last 24 hours): Temp Pulse Resp BP Pulse Ox 98.0 F 67 19 100/60 99 12/20/17 11:29 12/20/17 11:29 12/20/17 11:29 12/20/17 11:07 12/20/17 11:29 - Labs Labs: 12/20/17 07:42 12/20/17 07:42 PT 11.5 SECONDS (9.4-12.5) 12/20/17 07:42 INR 1.00 12/20/17 07:42 APTT 30.2 Seconds (25.1-36.5) 12/20/17 07:42 Attending/Attestation - Attestation Notes (Text): Patient not seen or examined by me. AMA discussed with resident.
--- NOTE | 2017-12-20 17:51 | CARD ---
APPROVED REPORT Date of service: 12/20/2017 EKG Measurement Heart [id number] <Conclusion> Normal sinus rhythm Normal ECG
== END 2017-12-20 11:35 | disposition left against medical advice (07) ==
LOC: ED 05:26 → UNDOADMOB 09:39 → ERH 09:39
DX: M54.5 Low back pain (principal); R55 Syncope and collapse
CPT/HCPCS: 70450; 71045; 72131; 80053; 81001; 82550; 83615; 83735; 84484; 84703; 85025; 85610; 85730; 87086; 93005; 96372; 99284; J1885; J7030

== ENCOUNTER → 2018-07-18 | Outpatient (CLI) | payer MEDICAID | LOC: RAD 10:49 | DX: G44.1 Vascular headache, not elsewhere classified (principal); G60.9 Hereditary and idiopathic neuropathy, unspecified; R42 Dizziness and giddiness ==

== ENCOUNTER 2018-09-01 07:09 | Emergency (ER) | payer MEDICAID ==
[2018-09-01 07:22] VITALS: BMI 26.5
[2018-09-01 07:51] VITALS: RESP 18; TEMP 97.1
[2018-09-01] MEDS ORDERED: Sodium Chloride 0.9% 1,000 ML IV STA (07:51)
[2018-09-01] MEDS ORDERED: Alum-Mag Hydrox-Simethicone Susp (30 mL) PO STA (07:53)
--- NOTE | 2018-09-01 07:53 | ED PDOC ---
Arrival/HPI - General Chief Complaint: Abdominal Pain Time Seen by Provider: 09/01/18 07:23 Historian: Patient - History of Present Illness Narrative History of Present Illness (Text): 09/01/18 07:23 Nicolette Burns is a 42 year old male, with a past medical history of appendectomy, who presents to the emergency department complaining of periumbillical abdominal pain since yesterday. Patient informs of one episode of vomiting with improvement of complaint. Patient currently appreciates nausea in the ED. She informs of eating "fatty meat" yesterday after > 1 month of meat fast. Pt able to tolerate liquid PO. Pt informs of history of similar complaints. Patient denies any medications. Patient denies diarrhea, bloody stool, rectal bleeding, dysuria, increased urinary frequency, hematuria, fevers, chills, body aches, headache, dizziness, or any other complaints. Time/Duration: 24 hours Symptom Onset: Sudden Symptom Course: Improving Activities at Onset: Light Context: Home Past Medical History - Provider Review Nursing Documentation Reviewed: Yes - Infectious Disease Hx of Infectious Diseases: None - Tetanus Immunization Tetanus Immunization: Unknown - Past Medical History Past Medical History: No Previous - Cardiac Hx Cardiac Disorders: No - Pulmonary Hx Respiratory Disorders: No - Neurological Hx Neurological Disorder: No - HEENT Hx HEENT Disorder: No - Renal Hx Renal Disorder: No - Endocrine/Metabolic Hx Endocrine Disorders: No - Hematological/Oncological Hx Blood Disorders: No - Integumentary Hx Dermatological Disorder: Yes (Cyst Right Shoulder) - Musculoskeletal/Rheumatological Hx Fractures: Yes (left arm 1989) - Gastrointestinal Hx Gastrointestinal Disorders: No - Genitourinary/Gynecological Other/Comment: Cyst right breast - Psychiatric Hx Substance Use: No - Past Surgical History Past Surgical History: No Previous - Surgical History Hx Appendectomy: Yes Hx Tonsillectomy: Yes - Anesthesia Hx Anesthesia: Yes Hx Anesthesia Reactions: No Hx Malignant Hyperthermia: No - Suicidal Assessment Feels Threatened In Home Enviroment: No Family/Social History - Physician Review Nursing Documentation Reviewed: Yes Family/Social History: Unknown Family HX Smoking Status: Never Smoked Hx Alcohol Use: No Hx Substance Use: No Hx Substance Use Treatment: No Allergies/Home Meds Allergies/Adverse Reactions: Allergies No Known Allergies Allergy (Verified 09/01/18 07:51) Review of Systems - Physician Review All systems were reviewed & negative as marked: Yes - Review of Systems Constitutional: absent: Fevers, Other (chills, body aches) Gastrointestinal: Abdominal Pain (periumbilical), Nausea, Vomiting. absent: Diarrhea, Hematochezia, Other (rectal bleeding) Genitourinary Female: absent: Dysuria, Frequency (increased), Hematuria Neurological: absent: Headache, Dizziness Physical Exam Vital Signs Reviewed: Yes Vital Signs Temp Pulse Resp BP Pulse Ox 09/01/18 07:22 97.1 F L 86 18 107/76 100 Temperature: Afebrile Blood Pressure: Normal Pulse: Regular Respiratory Rate: Normal Appearance: Positive for: Well-Appearing, Non-Toxic, Comfortable Pain Distress: None Mental Status: Positive for: Alert and Oriented X 3 - Systems Exam Head: Present: Atraumatic, Normocephalic Pupils: Present: PERRL Extroacular Muscles: Present: EOMI Conjunctiva: Present: Normal Mouth: Present: Moist Mucous Membranes Neck: Present: Normal Range of Motion Respiratory/Chest: Present: Clear to Auscultation, Good Air Exchange. No: Respiratory Distress, Accessory Muscle Use, Wheezes, Rales, Rhonchi Cardiovascular: Present: Regular Rate and Rhythm, Normal S1, S2. No: Murmurs, Rub, Gallop Abdomen: Present: Tenderness (periumbilical), Normal Bowel Sounds, Guarding. No: Distention, Peritoneal Signs, Rebound Back: Present: Normal Inspection Upper Extremity: Present: Normal Inspection. No: Cyanosis, Edema Lower Extremity: Present: Normal Inspection. No: Edema Neurological: Present: GCS=15, CN II-XII Intact, Speech Normal Skin: Present: Warm, Dry, Normal Color. No: Rashes Psychiatric: Present: Alert, Oriented x 3, Normal Insight, Normal Concentration Medical Decision Making ED Course and Treatment: 09/01/18 07:23 Impression: Patient is a 42 year old female with a past medical history of appendectomy, who presents to the emergency department complaining of periumbilical abdominal pain since yesterday. Currently nauseous in the ED. Patient notes one episode of vomiting with improvement of symptoms. She states eating "fatty meat" yesterday after > 1 month of meat fasting. Denies diarrhea, bloody stools, rectal bleeding, dysuria, increased urinary frequency, hematuria, or any other complaints. On exam; periumbilical tenderness with guarding, no rebound. Differential Diagnosis included but are not limited to: early gastroenteritis vs. gastritis Plan: -- Labs -- Maalox -- Pepcid -- IV Fluids -- Zofran -- Reassess and disposition Prior Visits: Notes and results from previous visits were reviewed. Progress Notes: 09/01/18 10:14 Patient is feeling completely better and no longer has abdominal pain. Her abdomen is soft, NT, ND, BS x 4. She is tolerating PO fluids. She will go home with her . She was advised to take meds as prescribed and to f/u with her primary care doctor this week. She was advised to return to the ED symptom worsened or any other concern. - EKG Interpretation EKG Interpretation (Text): 09/01/18 07:23 Reviewed EKG, shows: NSR at 82 BPM. Normal Intervals. No ST elevations. Interpreted by ED Physician: Yes Type: 12 lead EKG - Scribe Statement The provider has reviewed the documentation as recorded by the Scribe Angelo Fink All medical record entries made by the Scribe were at my direction and personally dictated by me. I have reviewed the chart and agree that the record accurately reflects my personal performance of the history, physical exam, medical decision making, and the department course for this patient. I have also personally directed, reviewed, and agree with the discharge instructions and disposition. Disposition/Present on Arrival - Present on Arrival Any Indicators Present on Arrival: No History of DVT/PE: No History of Uncontrolled Diabetes: No Urinary Catheter: No History of Decub. Ulcer: No History Surgical Site Infection Following: None - Disposition Have Diagnosis and Disposition been Completed?: Yes Diagnosis: Abdominal pain Disposition: HOME/ ROUTINE Disposition Time: 10:15 Patient Plan: Discharge Patient Problems: Current Active Problems Problem Status Onset Abdominal pain Acute Condition: IMPROVED Discharge Instructions (ExitCare): Acute Abdomen (Belly Pain) Additional Instructions: NICOLETTE BURNS, thank you for letting us take care of you today. Your provider was Giovanny Dee DO and you were treated for Abdominal Pain. The emergency medical care you received today was directed at your acute symptoms. If you were prescribed any medication, please fill it and take as directed. It may take several days for your symptoms to resolve. Return to the Emergency Department if your symptoms worsen, do not improve, or if you have any other problems. Please contact your doctor or call one of the physicians/clinics you have been referred to that are listed on the Patient Visit Information form that is included in your discharge packet. Bring any paperwork you were given at discharge with you along with any medications you are taking to your follow up visit. Our treatment cannot replace ongoing medical care by a primary care provider outside of the emergency department. Thank you for allowing the [facility] team to be part of your care today. If you had an X-Ray or CT scan: A Radiologist will review the ED reading if any change in treatment is needed we will contact you. If you had a blood, urine, or wound culture: It will take several days for the results, if any change in treatment is needed we will contact you. If you had an STI test: It will take 48 hours for the results. Please call after 1 week if you have not heard back. Prescriptions: Aluminum Hydroxide/Magnesium H [Maalox 30 ml] 30 ml PO Q8 #1 bottle Ranitidine HCl [Zantac] 150 mg PO BID PRN #30 tablet PRN Reason: Pain, Mild (1-3) Referrals: Jaya Edwards MD [Family Provider] - Follow up with primary Forms: [facility] (Romanian), WORK NOTE
[2018-09-01 08:35] LABS: BASO # 0.02 {null, K/mm3} (0.0-2.0); BASO % 0.4 % (0.0-3.0); EOS # 0.1 (0.0-0.7); EOS % 1.7 % (1.5-5.0); HEMOGLOBIN 13.8 g/dL (12.0-16.0); LYMPH # 2.1 (1.2-3.4); LYMPH % 39.5 % (22.0-35.0); MEAN CORPUSCULAR HEMOGLOBIN 26.7 pg (25.0-35.0); MEAN PLATELET VOLUME 11.1 fl (7.0-11.0); MONO # 0.4 (0.1-0.6); MONO % 7.8 % (1.0-6.0); RBC 5.16 {null, 10^6/uL} (3.5-6.1); RED CELL DISTRIBUTION WIDTH 13.5 % (11.5-14.5); WHITE BLOOD COUNT 5.3 {null, 10^3/uL} (4.5-11.0)
[2018-09-01 10:03] VITALS: BP 112/89; PULSE 72; O2SAT 99
[2018-09-01 10:12] LABS: ALB/GLOB RATIO 1.2 (1.1-1.8); ALT/SGPT 25 U/L (7-56); AST/SGOT 24 U/L (14-36); BLOOD UREA NITROGEN 29 mg/dL (7-21); CALCIUM 8.9 mg/dL (8.4-10.5); GFR NON-AFRICAN AMERICAN > 60; LIPASE 52 U/L (23-300)
--- NOTE | 2018-09-01 20:11 | CARD ---
APPROVED REPORT Date of service: 09/01/2018 EKG Measurement Heart [id number] <Conclusion> Normal sinus rhythm Normal ECG
== END 2018-09-01 10:36 | disposition home or self-care (01) ==
LOC: ED 07:09
DX: R10.9 Unspecified abdominal pain (principal)
CPT/HCPCS: 80053; 81025; 83690; 83735; 85025; 93005; 96361; 96374; 96375; 99284; J2405; J7030